=== PATIENT | female | born 1995 | race Caucasian/White ===

== ENCOUNTER 2020-07-26 18:10 | Outpatient (CLI) | payer MEDICAID | END 2020-07-26 18:11 | disposition home or self-care (01) | LOC: LAB 18:10 | PROVIDERS: ATTEND Midwife | DX: Z34.01 Encounter for supervision of normal first pregnancy, first trimester (principal) | CPT/HCPCS: 36415; 84702 ==

== ENCOUNTER 2020-08-02 17:01 | Outpatient (CLI) | payer MEDICAID | END 2020-08-02 17:02 | disposition home or self-care (01) | LOC: LAB 17:01 | PROVIDERS: ATTEND Midwife | DX: Z34.01 Encounter for supervision of normal first pregnancy, first trimester (principal) | CPT/HCPCS: 36415; 84702 ==